=== PATIENT | female | born 1985 | race American Indian/Alaskan Native ===

== ENCOUNTER 2021-04-05 08:32 | Outpatient (CLI) | payer MEDICARE ==
[2021-04-05 09:15] LABS: Hematocrit 32.6 % (30.3-42.9); Hemoglobin 10.3 gm/dl (10.1-14.3); Mean Corpuscular HGB Conc 32 % (30-34); Mean Corpuscular Volume 86 fl (79-97); Platelet Count 213 K/mm3 (140-440); Red Cell Distribution Width 19.2 % (13.2-15.2)
[2021-04-05 09:19] LABS: Alanine Aminotransferase 15 units/L (7-56); Albumin 3.5 g/dL (3.9-5); BUN/Creatinine Ratio 10; Blood Urea Nitrogen 9 mg/dL (7-17); Calcium 9.1 mg/dL (8.4-10.2); Hemolysis Index 3
[2021-04-05 09:26] LABS: INR 1.71 (0.87-1.13)
== END 2021-04-05 08:33 | disposition home or self-care (01) ==
LOC: LAB 08:32
PROVIDERS: ATTEND Internal Medicine
DX: I50.22 Chronic systolic (congestive) heart failure (principal); Z79.01 Long term (current) use of anticoagulants; Z95.811 Presence of heart assist device
CPT/HCPCS: 36415; 80053; 83735; 85027; 85610